=== PATIENT | male | born 1995 | race Caucasian/White ===

== ENCOUNTER 2017-07-29 14:33 | Emergency (ER) | payer OTHER ==
[~2017-07-29] VITALS: Ht 185.4 cm; Wt 98.4 kg
[2017-07-29 14:51] VITALS: Ht 185.4 cm; Wt 98.4 kg
[2017-07-29 16:00] VITALS: BP 149/77
== END 2017-07-29 16:00 | disposition home or self-care (01) ==
LOC: ED 14:33
DX: A60.00 Herpesviral infection of urogenital system, unspecified (principal); N30.90 Cystitis, unspecified without hematuria; I10 Essential (primary) hypertension

== ENCOUNTER 2017-08-22 17:25 | Emergency (ER) | payer OTHER ==
[~2017-08-22] VITALS: Ht 185.4 cm; Wt 99.3 kg
[2017-08-22 17:43] VITALS: Ht 185.4 cm; Wt 99.3 kg
[2017-08-22 19:03] VITALS: BP 120/81
== END 2017-08-22 19:03 | disposition home or self-care (01) ==
LOC: ED 17:25
DX: L03.115 Cellulitis of right lower limb (principal)
CPT/HCPCS: J0696; J7512